=== PATIENT | male | born 1970 | race Caucasian/White ===

== ENCOUNTER 2016-07-18 08:57 | Emergency (ER) | payer BC ==
[2016-07-18 10:48] VITALS: BP 143/83
[2016-07-18] MEDS ORDERED: Naproxen TAB* 250 MG PO ONE (11:04)
--- NOTE | 2016-07-18 11:11 | UC ---
Cardiac HPI - HPI Summary HPI Summary: The patient comes in today for: 1. Right posterior chest wall pain: Onset: 15 hours ago. Palliative/provocative: Coughing, sneezing, and pressure. Quality: Sharp and ache Region: Posterior right rib cage. Severity: 7/10 Time: constant. Associated symptoms: Dyspnea: None. Hemoptysis: None. Event: He slipped and fell to the side and his posterior right rib cage hit the corner of a tool box. He had pain right then and there. * - History of Current Complaint Chief Complaint: UCBackPain Stated Complaint: FALL RIGHT RIB Time Seen by Provider: 07/18/16 10:43 Hx Obtained From: Patient - Allergy/Home Medications Allergies/Adverse Reactions: Allergies Allergy/AdvReac Type Severity Reaction Status Date / Time No Known Allergies Allergy Verified 07/18/16 10:38 Home Medications: Home Medications Sitagliptin/Metform 50/500(NF) [Janumet 50/500 (NF)] 1 tab PO DAILY 07/18/16 [ History Confirmed 07/18/16] PMH/Surg Hx/FS Hx/Imm Hx Endocrine History Of: Reports: Diabetes Denies: Thyroid Disease, Hyperthyroidism, Hypothyroidism, Dyslipidemia Cardiovascular History Of: Denies: Cardiac Disorders, Hypertension, Pacemaker/ICD, Myocardial Infarction , Congestive Heart Failure, Atrial Fibrillation, Deep Vein Thrombosis, Bleeding Disorders Respiratory History Of: Denies: COPD, Asthma, Bronchitis, Pneumonia, Pulmonary Embolism GI/ History Of: Denies: Gastroesophageal Reflux, Ulcer, Gastrointestinal Bleed, Gall Bladder Disease, Kidney Stones, Diverticulitis, Renal Disease, Urosepsis Neurological History Of: Denies: TIA, CVA, Dementia, Seizures, Migraine Psychological History Of: Denies: Anxiety, Depression, Bipolar Disorder, Schizophrenia, Post Traumatic Stress Disorder Cancer History Of: Denies: Lung Cancer, Colorectal Cancer, Breast Cancer, Prostate Cancer, Cervical Cancer Other History Of: Negative For: HIV, Hepatitis B, Hepatitis C, Anticoagulant Therapy - Surgical History Surgical History: None - Family History Known Family History: Positive: Diabetes Negative: Cardiac Disease, Hypertension - Social History Occupation: Employed Full-time Alcohol Use: None Substance Use Type: None Smoking Status (MU): Heavy Every Day Tobacco Smoker Type: Cigarettes Amount Used/How Often: 1 PPD Have You Smoked in the Last Year: Yes Household Exposure Type: Cigarettes Review of Systems Constitutional: Negative Skin: Negative Eyes: Negative ENT: Negative Respiratory: Negative Cardiovascular: Chest Pain Gastrointestinal: Negative Genitourinary: Negative All Other Systems Reviewed And Are Negative: Yes Physical Exam Triage Information Reviewed: Yes Appearance: Well-Appearing, No Pain Distress, Well-Nourished Vital Signs: Initial Vital Signs Temp 98.2 F 07/18/16 10:41 Pulse 71 07/18/16 10:41 Resp 20 07/18/16 10:41 BP 143/83 07/18/16 10:41 Pulse Ox 98 07/18/16 10:41 Vital Signs Reviewed: Yes Eyes: Positive: Conjunctiva Clear. Negative: Discharge ENT: Positive: Hearing grossly normal. Negative: Pharyngeal erythema, Nasal congestion, Nasal drainage, TM bulging, TM dull, TM red, Tonsillar swelling, Tonsillar exudate Dental: Negative: Gross Decay/Caries @, Dental Fracture @ Neck: Positive: Supple, Nontender, No Lymphadenopathy. Negative: Nuchal Rigidity Respiratory: Positive: Lungs clear, No respiratory distress, No accessory muscle use. Negative: Crackles, Wheezing Cardiovascular: Positive: RRR, No Murmur Abdomen Description: Positive: Nontender, No Organomegaly, Soft. Negative: Distended, Guarding Musculoskeletal: Positive: Strength Intact, ROM Intact, Other: - He has no subcutaneous emphysema or ecchymosis, but there is focal soreness to palpation of the right ribs. Anterior pressure will also lead to pain in the affected area. Neurological: Positive: Alert, Muscle Tone Normal Psychological: Positive: Normal Response To Family, Age Appropriate Behavior, Consolable Skin: Negative: rashes, breakdown Diagnostics - Laboratory Diagnostic Studies Completed/Ordered: Right rib x-rays: IMPRESSION: NO EVIDENCE FOR FRACTURE. - Clinical Impression Provider Diagnoses: rib injury (right)--no fracture. Discharge - Discharge Plan Condition: Stable Disposition: HOME Patient Education Materials: Chest Wall Pain (ED) Forms: *Work Release Referrals: [facility] [Primary Care Provider] - 1 Week (Please see your primary care provider in about a week to see how well you are doing. If you get worse, please be seen sooner.) Additional Instructions: Use of a rib belt which you may be able to get at a drug store which carries durable medical equipment may be helpful.
--- NOTE | 2016-07-18 11:34 | RAD ---
INDICATION: Right rib injury. TECHNIQUE: 4 views of the right ribs were obtained. FINDINGS: No fracture or significant focal osseous abnormality is seen. IMPRESSION: NO EVIDENCE FOR FRACTURE.
== END 2016-07-18 11:51 | disposition home or self-care (01) ==
LOC: MERGE 08:57 → UCCORT 08:57
DX: S39.91XA Unspecified injury of abdomen, initial encounter (principal); W01.198A Fall on same level from slipping, tripping and stumbling with subsequent striking against other object, initial encounter; Y92.9 Unspecified place or not applicable; E11.9 Type 2 diabetes mellitus without complications
CPT/HCPCS: 99202; A9270-GY; G0463

== ENCOUNTER 2017-04-22 15:35 | Emergency (ER) | payer BC ==
--- NOTE | 2017-04-22 15:43 | UC ---
Upper Extremity HPI - HPI Summary HPI Summary: 47 year old male presents with left hand pain. - History of Current Complaint Stated Complaint: LEFT HAND INJ Time Seen by Provider: 04/22/17 15:42 Hx Obtained From: Patient Onset/Duration: Sudden Onset Severity Initially: Moderate Severity Currently: Moderate Pain Scale Used: 0-10 Numeric - 5 Aggravating Factor(s): Movement, Lifting, Flexion, Extension Alleviating Factor(s): Nothing Associated Signs And Symptoms: Positive: Negative - Allergies/Home Medications Allergies/Adverse Reactions: Allergies Allergy/AdvReac Type Severity Reaction Status Date / Time No Known Allergies Allergy Verified 04/22/17 15:50 Home Medications: Home Medications Ibuprofen [Advil] 600 mg PO 04/22/17 [History] PMH/Surg Hx/FS Hx/Imm Hx Previously Healthy: Yes Other History Of: Negative For: HIV, Hepatitis B, Hepatitis C, Anticoagulant Therapy - Family History Known Family History: Positive: Diabetes Negative: Cardiac Disease, Hypertension - Social History Substance Use Type: None Type: Cigarettes Have You Smoked in the Last Year: Yes Household Exposure Type: Cigarettes Review of Systems Constitutional: Negative Skin: Negative Eyes: Negative ENT: Negative Respiratory: Negative Cardiovascular: Negative Gastrointestinal: Negative Genitourinary: Negative Motor: Negative Neurovascular: Negative Musculoskeletal: Other: - left hand pain Neurological: Negative Psychological: Negative All Other Systems Reviewed And Are Negative: Yes Physical Exam Triage Information Reviewed: Yes Vital Signs Reviewed: Yes Eye Exam: Normal ENT Exam: Normal Dental Exam: Normal Neck exam: Normal Neck: Positive: 1 Respiratory Exam: Normal Cardiovascular Exam: Normal Abdominal Exam: Normal Musculoskeletal: Positive: Other: - left hand pain Neurological Exam: Normal Psychological Exam: Normal Skin Exam: Normal Upper Extremity Course/Dx - Differential Dx/Diagnosis Provider Diagnoses: left hand sprain Discharge - Discharge Plan Condition: Stable Disposition: HOME Patient Education Materials: Hand Sprain (ED) Referrals: [facility] [Primary Care Provider] -
[2017-04-22 15:49] VITALS: BP 108/75
--- NOTE | 2017-04-22 16:39 | RAD ---
Indication: Left hand pain. 4 views of the left hand demonstrates no fracture. No other bone or joint abnormality is identified. IMPRESSION: No fracture of the left hand is noted.
== END 2017-04-22 16:57 | disposition home or self-care (01) ==
LOC: UCCORT 15:35
DX: S63.92XA Sprain of unspecified part of left wrist and hand, initial encounter (principal); Z72.0 Tobacco use; X58.XXXA Exposure to other specified factors, initial encounter; Y92.9 Unspecified place or not applicable
CPT/HCPCS: 99212; G0463